=== PATIENT | female | born 1995 | race African-American/Black ===

== ENCOUNTER 2017-03-21 17:07 | Emergency (ER) | payer OTHER, SELFPAY ==
[2017-03-21] MEDS ORDERED: IBUPROFEN 800 MG TAB PO (20:30)
[2017-03-21] MEDS: ONDANSETRON 4 MG ORAL DISINTEGRATING TAB (S0181) PO (21:10)
== END 2017-03-21 21:12 | disposition home or self-care (01) ==
LOC: M ED 17:07
DX: R11.2 Nausea with vomiting, unspecified (principal); H92.02 Otalgia, left ear; J45.909 Unspecified asthma, uncomplicated; F31.9 Bipolar disorder, unspecified; Z88.0 Allergy status to penicillin; Z88.8 Allergy status to other drugs, medicaments and biological substances; F17.210 Nicotine dependence, cigarettes, uncomplicated
CPT/HCPCS: 81025

== ENCOUNTER 2017-05-10 20:31 | Emergency (ER) | payer OTHER ==
[2017-05-10] MEDS: GI COCKTAIL 50ML BTL(HYOSCYAMINE/MAALOX/LIDOCAINE VISCOUS)(1:3:1) PO (22:00)
[2017-05-10 22:01] LABS: AMORPHOUS SEDIMENT RFX SMALL (NEGATIVE); KETONE, URINE AUTO RFX NEGATIVE (NEGATIVE); LEUKOCYTE ESTERASE UR AUTO RFX 1+ (NEGATIVE); NITRITE, URINE AUTO RFX NEGATIVE (NEGATIVE); RBC, URINE AUTO RFX 2 /HPF (0-3); SPECIFIC GRAVITY UR AUTO RFX 1.019 (1.002-1.035); SQUAM EPITHELIAL CELL UR AURFX 19 /HPF (0-6); WBC, URINE AUTO RFX 4 /HPF (0-3)
[2017-05-10 22:38] LABS: BASO % 0.5 % (0.0-1.0); EOS # 0.2 10^3/uL (0.0-0.50); EOS % 2.8 % (0.0-3.0); HEMATOCRIT 44.5 % (36.0-47.0); HEMOGLOBIN 14.3 g/dl (12.0-16.0); IMMATURE GRANULOCYTE % 0.2 % (0-3.0); LYMPH # 2.1 10^3/uL (1.5-6.5); LYMPH % 34.3 % (24.0-44.0); MEAN CORPUSCULAR HEMOGLOBIN 25.6 pg (27.0-33.0); MEAN CORPUSCULAR HGB CONC 32.1 g/dl (32.0-36.5); MEAN CORPUSCULAR VOLUME 79.7 fl (80.0-96.0); MONO # 0.4 10^3/uL (0.0-0.8); MONO % 7.1 % (0.0-5.0); NEUTROPHILS # 3.4 10^3/uL (1.8-7.7); NEUTROPHILS % 55.1 % (36.0-66.0); PLATELET COUNT, AUTOMATED 359 10^3/uL (150-450); RED BLOOD COUNT 5.58 10^6/uL (4.00-5.40); RED CELL DISTRIBUTION WIDTH 13.5 % (11.5-14.5); WHITE BLOOD COUNT 6.2 10^3/uL (4.0-10.0)
[2017-05-10 22:59] LABS: ALBUMIN 3.5 GM/DL (3.2-5.2); ALBUMIN/GLOBULIN RATIO 0.85 (1.00-1.93); ALKALINE PHOSPHATASE 67 U/L (45-117); ALT/SGPT 26 U/L (12-78); AMYLASE 48 U/L (25-115); ANION GAP 8 MEQ/L (8-16); AST/SGOT 25 U/L (7-37); BILIRUBIN,DIRECT < 0.1 MG/DL (0.0-0.2); BILIRUBIN,TOTAL 0.3 MG/DL (0.2-1.0); BLOOD UREA NITROGEN 10 MG/DL (7-18); CALCIUM LEVEL 9.1 MG/DL (8.5-10.1); CARBON DIOXIDE LEVEL 27 MEQ/L (21-32); CHLORIDE LEVEL 107 MEQ/L (98-107); CREATININE FOR GFR 0.59 MG/DL (0.55-1.30); GLOMERULAR FILTRATION RATE > 60.0 (>60); GLUCOSE, FASTING 90 MG/DL (70-100); LIPASE 117 U/L (73-393); SODIUM LEVEL 142 MEQ/L (136-145); TOTAL PROTEIN 7.6 GM/DL (6.4-8.2)
== END 2017-05-10 23:23 | disposition home or self-care (01) ==
LOC: M ED 20:31
DX: R10.9 Unspecified abdominal pain (principal); J45.909 Unspecified asthma, uncomplicated; Z79.899 Other long term (current) drug therapy; Z88.0 Allergy status to penicillin; Z88.8 Allergy status to other drugs, medicaments and biological substances; F17.210 Nicotine dependence, cigarettes, uncomplicated
CPT/HCPCS: 74021

== ENCOUNTER 2017-08-29 14:49 | Emergency (ER) | payer OTHER | END 2017-08-29 17:09 | disposition home or self-care (01) | LOC: M ED 14:49 | DX: M25.562 Pain in left knee (principal); X50.1XXA Overexertion from prolonged static or awkward postures, initial encounter; Y92.89 Other specified places as the place of occurrence of the external cause; F31.9 Bipolar disorder, unspecified; F41.9 Anxiety disorder, unspecified; J45.909 Unspecified asthma, uncomplicated; F17.200 Nicotine dependence, unspecified, uncomplicated; Z88.0 Allergy status to penicillin; Z88.6 Allergy status to analgesic agent; Z88.8 Allergy status to other drugs, medicaments and biological substances; Z79.899 Other long term (current) drug therapy | CPT/HCPCS: 73564 ==

== ENCOUNTER 2017-12-09 18:54 | Emergency (ER) | payer OTHER ==
[2017-12-09 19:43] LABS: BASO % 0.4 % (0.0-1.0); EOS # 0.2 10^3/uL (0.0-0.50); EOS % 2.4 % (0.0-3.0); HEMATOCRIT 45.2 % (36.0-47.0); HEMOGLOBIN 14.4 g/dl (12.0-15.5); IMMATURE GRANULOCYTE % 0.3 % (0-3.0); LYMPH # 2.6 10^3/uL (1.5-6.5); LYMPH % 36.8 % (24.0-44.0); MEAN CORPUSCULAR HEMOGLOBIN 25.9 pg (27.0-33.0); MEAN CORPUSCULAR HGB CONC 31.9 g/dl (32.0-36.5); MEAN CORPUSCULAR VOLUME 81.4 fl (80.0-96.0); MONO # 0.6 10^3/uL (0.0-0.8); MONO % 8.7 % (0.0-5.0); NEUTROPHILS # 3.6 10^3/uL (1.8-7.7); NEUTROPHILS % 51.4 % (36.0-66.0); PLATELET COUNT, AUTOMATED 329 10^3/uL (150-450); RED BLOOD COUNT 5.55 10^6/uL (4.00-5.40); RED CELL DISTRIBUTION WIDTH 13.3 % (11.5-14.5); VENOUS BASE EXCESS 1.2 (-2.0-2.0); VENOUS HCO3 28.7 MEQ/L (23.0-27.0); VENOUS O2 SATURATION 72.4 % (60.0-80.0); VENOUS PARTIAL PRESSURE CO2 57.3 mmHg (38.0-50.0); VENOUS PARTIAL PRESSURE O2 38.4 mmHg (30.0-50.0); VENOUS PH 7.318 UNITS (7.330-7.430); VENOUS STANDARD HCO3 24.8 MEQ/L; VENOUS TOTAL CO2 30.5 MEQ/L (24.0-28.0)
[2017-12-09 19:47] LABS: CONTROL LINE HCG INT CTR LINE PRESENT; HCG, SERUM QUALITATIVE NEGATIVE (NEGATIVE)
[2017-12-09] MEDS: NS 1,000 ML IV (19:55)
[2017-12-09 20:15] LABS: ALBUMIN 3.4 GM/DL (3.2-5.2); ALBUMIN/GLOBULIN RATIO 0.87 (1.00-1.93); ALKALINE PHOSPHATASE 62 U/L (45-117); ALT/SGPT 23 U/L (12-78); ANION GAP 8 MEQ/L (8-16); AST/SGOT 15 U/L (7-37); BILIRUBIN,DIRECT < 0.1 MG/DL (0.0-0.2); BILIRUBIN,TOTAL 0.1 MG/DL (0.2-1.0); BLOOD UREA NITROGEN 12 MG/DL (7-18); CALCIUM LEVEL 9.2 MG/DL (8.5-10.1); CARBON DIOXIDE LEVEL 28 MEQ/L (21-32); CHLORIDE LEVEL 110 MEQ/L (98-107); ETHYL ALCOHOL (ETHANOL) < 0.003 % (0.000-0.010); GLOMERULAR FILTRATION RATE > 60.0 (>60); GLUCOSE, FASTING 69 MG/DL (70-100); LIPASE 165 U/L (73-393); POTASSIUM SERUM 3.9 MEQ/L (3.5-5.1); SODIUM LEVEL 146 MEQ/L (136-145); TOTAL PROTEIN 7.3 GM/DL (6.4-8.2)
[2017-12-09 20:18] LABS: ESTIMATED AVERAGE GLUCOSE 103 MG/DL (60-110); HEMOGLOBIN A1c 5.2 %
[2017-12-09] MEDS: IBUPROFEN 600 MG TAB PO (20:30)
[2017-12-09 20:58] LABS: KETONE, URINE AUTO RFX NEGATIVE (NEGATIVE); LEUKOCYTE ESTERASE UR AUTO RFX NEGATIVE (NEGATIVE); MUCUS, URINE RFX SMALL (NEGATIVE); NITRITE, URINE AUTO RFX NEGATIVE (NEGATIVE); RBC, URINE AUTO RFX 1 /HPF (0-3); SPECIFIC GRAVITY UR AUTO RFX 1.025 (1.002-1.035); SQUAM EPITHELIAL CELL UR AURFX 3 /HPF (0-6); WBC, URINE AUTO RFX 1 /HPF (0-3)
[2017-12-09 21:14] LABS: AMPHETAMINES LEVEL URINE NEGATIVE (NEGATIVE); BARBITURATES URINE NEGATIVE (NEGATIVE); BENZODIAZEPINES URINE NEGATIVE (NEGATIVE); CANNABINOIDS URINE POSITIVE (NEGATIVE); COCAINE METABOLITE URINE NEGATIVE (NEGATIVE); METHADONE URINE NEGATIVE (NEGATIVE); OPIATES URINE NEGATIVE (NEGATIVE); PHENCYCLIDINE URINE NEGATIVE (NEGATIVE)
[2017-12-16 09:41] LABS: BEDSIDE GLUCOSE 81 MG/DL (70-105)
== END 2017-12-09 21:53 | disposition home or self-care (01) ==
LOC: M ED 18:54
DX: R53.81 Other malaise (principal); R53.83 Other fatigue; R11.0 Nausea; Z88.0 Allergy status to penicillin; Z88.6 Allergy status to analgesic agent; Z88.8 Allergy status to other drugs, medicaments and biological substances; Z79.899 Other long term (current) drug therapy
CPT/HCPCS: 80320

== ENCOUNTER 2018-06-01 17:36 | Emergency (ER) | payer OTHER, SELFPAY ==
[~2018-06-01] VITALS: Ht 160 cm; Wt 114.4 kg
[~2018-06-01 17:36] MED LIST: ALBU17IN INH; ARNU1INH INH; MONT10TA2 PO; PRIL20CA9 PO; SERT50TA PO; SING10TA32 PO; TRAZO50TA PO; VENL75CA47 PO; XANA0.25 PO; ZITHTAB PO; ZOFR4TAB14 PO
[2018-06-01 17:38] VITALS: BP 133/61
== END 2018-06-01 20:15 | disposition left against medical advice (07) ==
LOC: M ED 17:36
DX: Z53.21 Procedure and treatment not carried out due to patient leaving prior to being seen by health care provider (principal)

== ENCOUNTER 2018-08-31 19:14 | Emergency (ER) | payer OTHER, SELFPAY ==
[~2018-08-31] VITALS: Ht 162.6 cm; Wt 109.1 kg
[~2018-08-31 19:14] MED LIST changes: +SERT-141 PO; -SERT50TA PO; +TRAZ1TAB10 PO; -TRAZO50TA PO
[2018-08-31 20:14] LABS: BASO % 0.4 % (0.0-1.0); EOS # 0.1 10^3/uL (0.0-0.50); EOS % 1.1 % (0.0-3.0); HEMOGLOBIN 13.7 g/dl (12.0-15.5); LYMPH # 2.4 10^3/uL (1.5-6.5); LYMPH % 29.5 % (24.0-44.0); MEAN CORPUSCULAR HEMOGLOBIN 25.8 pg (27.0-33.0); MEAN CORPUSCULAR HGB CONC 31.9 g/dl (32.0-36.5); MEAN CORPUSCULAR VOLUME 80.8 fl (80.0-96.0); MONO % 12.1 % (0.0-5.0); NEUTROPHILS # 4.6 10^3/uL (1.8-7.7); NEUTROPHILS % 56.8 % (36.0-66.0); PLATELET COUNT, AUTOMATED 331 10^3/uL (150-450); RED BLOOD COUNT 5.32 10^6/uL (4.00-5.40); WHITE BLOOD COUNT 8.2 10^3/uL (4.0-10.0)
[2018-08-31 20:16] LABS: HCG, SERUM QUALITATIVE NEGATIVE (NEGATIVE)
[2018-08-31 20:20] LABS: ALBUMIN 3.5 GM/DL (3.2-5.2); ALT/SGPT 31 U/L (12-78); BILIRUBIN,DIRECT 0.2 MG/DL (0.0-0.2); BILIRUBIN,TOTAL 0.4 MG/DL (0.2-1.0); BLOOD UREA NITROGEN 10 MG/DL (7-18); CALCIUM LEVEL 8.8 MG/DL (8.5-10.1); CARBON DIOXIDE LEVEL 25 MEQ/L (21-32); CHLORIDE LEVEL 109 MEQ/L (98-107); CK-MB VALUE MASS 2.6 NG/ML (<3.6); CPK CREATINE PHOSPHOKINASE 385 U/L (26-192); CREATININE FOR GFR 0.65 MG/DL (0.55-1.30); ETHYL ALCOHOL (ETHANOL) < 0.003 % (0.000-0.010); GLOMERULAR FILTRATION RATE > 60.0 (>60); GLUCOSE, FASTING 74 MG/DL (70-100); LIPASE 393 U/L (73-393); MB/CK RELATIVE INDEX 0.68 (< OR =4); POTASSIUM SERUM 4.2 MEQ/L (3.5-5.1); SODIUM LEVEL 141 MEQ/L (136-145); TOTAL PROTEIN 7.5 GM/DL (6.4-8.2); TROPONIN I < 0.02 NG/ML (< 0.10)
[2018-08-31 20:54] VITALS: BP 132/86
--- NOTE | 2018-09-02 13:07 | ECGEPIP ---
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
== END 2018-08-31 20:54 | disposition home or self-care (01) ==
LOC: EDBD 19:14 → M ED 19:14
DX: R68.89 Other general symptoms and signs (principal); R00.1 Bradycardia, unspecified; J45.909 Unspecified asthma, uncomplicated; F32.9 Major depressive disorder, single episode, unspecified; Z72.0 Tobacco use; F12.10 Cannabis abuse, uncomplicated; Z88.0 Allergy status to penicillin; Z88.6 Allergy status to analgesic agent; Z88.8 Allergy status to other drugs, medicaments and biological substances
CPT/HCPCS: 80048; 80076; 82550; 82553; 83690; 84443; 84703; 85025; 93005; 99284; G0480

== ENCOUNTER 2018-12-27 09:54 | Emergency (ER) | payer OTHER ==
[~2018-12-27] VITALS: Ht 160 cm; Wt 108.1 kg
[2018-12-27 09:54] VITALS: BP 140/65
--- NOTE | 2018-12-27 11:07 | REP ---
LEFT KNEE, FIVE VIEWS: There is no evidence of an acute fracture, dislocation or intrinsic bone disease. IMPRESSION: No fracture or dislocation. Electronically Signed by Roger Ariza MD 12/28/2018 04:06 P
--- NOTE | 2018-12-27 11:08 | REP ---
LUMBOSACRAL SPINE: Five views of the lumbosacral spine are performed. There is no compression fracture or malalignment. There is normal lumbar lordosis. There is no spondylolysis or spondylolisthesis. Disc spaces are well preserved. Posterior elements are intact. There are hypoplastic 12th ribs. IMPRESSION: No fracture or dislocation. Electronically Signed by Roger Ariza MD 12/28/2018 04:06 P
== END 2018-12-27 11:26 | disposition home or self-care (01) ==
LOC: M ED 09:54
DX: S80.02XA Contusion of left knee, initial encounter (principal); S33.5XXA Sprain of ligaments of lumbar spine, initial encounter; V09.9XXA Pedestrian injured in unspecified transport accident, initial encounter; Y99.8 Other external cause status; Y92.9 Unspecified place or not applicable; Z88.0 Allergy status to penicillin; Z88.6 Allergy status to analgesic agent; J45.909 Unspecified asthma, uncomplicated; R73.03 Prediabetes; F41.9 Anxiety disorder, unspecified; F31.9 Bipolar disorder, unspecified; F17.200 Nicotine dependence, unspecified, uncomplicated; W22.10XA Striking against or struck by unspecified automobile airbag, initial encounter

== ENCOUNTER 2019-02-07 16:36 | Emergency (ER) | payer OTHER ==
[~2019-02-07] VITALS: Ht 160 cm; Wt 107.7 kg
[2019-02-07 16:38] VITALS: BP 146/80
== END 2019-02-07 20:28 | disposition left against medical advice (07) ==
LOC: M ED 16:36
DX: Z53.21 Procedure and treatment not carried out due to patient leaving prior to being seen by health care provider (principal)

== ENCOUNTER 2019-03-14 10:44 | Emergency (ER) | payer OTHER ==
[2019-03-14 10:56] VITALS: BP 127/85
[2019-03-14] MEDS ORDERED: ALPRAZolam 0.5 MG TAB PO ONE (11:15)
== END 2019-03-14 11:36 | disposition home or self-care (01) ==
LOC: M ED 10:44
DX: F41.0 Panic disorder [episodic paroxysmal anxiety] (principal); R55 Syncope and collapse; I10 Essential (primary) hypertension; J45.909 Unspecified asthma, uncomplicated; F17.200 Nicotine dependence, unspecified, uncomplicated; Z88.0 Allergy status to penicillin; Z88.6 Allergy status to analgesic agent; Z88.8 Allergy status to other drugs, medicaments and biological substances

== ENCOUNTER 2019-04-02 19:26 | Emergency (ER) | payer OTHER ==
[~2019-04-02] VITALS: Ht 160 cm; Wt 107.3 kg
[2019-04-02 20:08] LABS: BASO % 0.4 % (0.0-1.0); EOS # 0.1 10^3/uL (0.0-0.5); EOS % 1.8 % (0.0-3.0); HEMOGLOBIN 13.4 g/dl (12.0-15.5); LYMPH # 1.6 10^3/uL (1.5-5.0); LYMPH % 35.1 % (24.0-44.0); MEAN CORPUSCULAR HEMOGLOBIN 25.9 pg (27.0-33.0); MEAN CORPUSCULAR HGB CONC 31.2 g/dl (32.0-36.5); MONO # 0.8 10^3/uL (0.0-0.8); MONO % 17.2 % (0.0-5.0); NEUTROPHILS % 45.5 % (36.0-66.0); PLATELET COUNT, AUTOMATED 264 10^3/uL (150-450); RED BLOOD COUNT 5.18 10^6/uL (4.00-5.40); WHITE BLOOD COUNT 4.5 10^3/uL (4.0-10.0)
[2019-04-02] MEDS ORDERED: ONDANSETRON 4MG/2ML VIAL (J2405) IV ONE (20:15)
[2019-04-02] MEDS ORDERED: KETOROLAC 30 MG/ML VIAL (J1885) IV ONE (20:15)
[2019-04-02 20:36] LABS: ALBUMIN 3.6 GM/DL (3.2-5.2); ALT/SGPT 40 U/L (12-78); BILIRUBIN,DIRECT 0.1 MG/DL (0.0-0.2); BILIRUBIN,TOTAL 0.5 MG/DL (0.2-1.0); BLOOD UREA NITROGEN 10 MG/DL (7-18); CALCIUM LEVEL 8.7 MG/DL (8.5-10.1); CARBON DIOXIDE LEVEL 24 MEQ/L (21-32); CHLORIDE LEVEL 109 MEQ/L (98-107); CREATININE FOR GFR 0.66 MG/DL (0.55-1.30); GLOMERULAR FILTRATION RATE > 60.0 (>60); GLUCOSE, FASTING 90 MG/DL (70-100); LIPASE 118 U/L (73-393); POTASSIUM SERUM 4.1 MEQ/L (3.5-5.1); SODIUM LEVEL 139 MEQ/L (136-145); TOTAL PROTEIN 7.3 GM/DL (6.4-8.2)
--- NOTE | 2019-04-02 22:08 | REPVR ---
PROCEDURE INFORMATION: Exam: US Pelvis, Transvaginal Exam date and time: 04/02/2019 9:50 PM Age: 23 years old Clinical indication: Pelvic pain; Additional info: Lower abd pain/irregular menses TECHNIQUE: Imaging protocol: Real-time transvaginal pelvic ultrasound with image documentation. Transvaginal imaging was used for better evaluation of the endometrium and adnexa. COMPARISON: CT ABD PELVIS WITH CONTRAST 11/29/2012 12:50 PM FINDINGS: Uterus/cervix: Uterus measures 5.6 x 2.7 x 3.8 cm. Endometrial echo complex measures 6 mm. Right adnexa: Right ovary measures 3 x 1.7 x 2.5 cm. Volume 6.7 cc. Normal flow. Left adnexa: Left ovary measures 2.8 x 2.1 x 3.2 cm. Volume 9.8 cc. Normal flow. Bladder: Bladder appears unremarkable. Free fluid: Trace free fluid in the cul-de-sac likely physiologic. IMPRESSION: Unremarkable examination. Electronically signed by: Celso Moreno On 04/02/2019 22:08:08 PM
[2019-04-02] MEDS ORDERED: ISOVUE-370 76% 100ML VIAL (Q9967) As Ordered ONE (22:37)
--- NOTE | 2019-04-02 23:29 | REPVR ---
PROCEDURE INFORMATION: Exam: CT Abdomen And Pelvis With Contrast Exam date and time: 04/02/2019 10:57 PM Age: 23 years old Clinical indication: Abdominal pain; Localized; Lower; Additional info: Lower abd pain TECHNIQUE: Imaging protocol: Computed tomography of the abdomen and pelvis with intravenous contrast. Radiation optimization: All CT scans at this facility use at least one of these dose optimization techniques: automated exposure control; mA and/or kV adjustment per patient size (includes targeted exams where dose is matched to clinical indication); or iterative reconstruction. Contrast material: ISOVUE 370; Contrast volume: 100 ml; Contrast route: IV; COMPARISON: CT ABD PELVIS WITH CONTRAST 11/29/2012 12:50 PM FINDINGS: Lungs: Clear lung bases. Heart: The heart is top-normal in size. Liver: Normal liver. Gallbladder and bile ducts: Partially contracted gallbladder. Pancreas: Normal pancreas. Spleen: Normal spleen. Adrenals: Normal adrenal glands. Kidneys and ureters: Normal enhancement of the kidneys. There is no evidence of hydronephrosis. Stomach and bowel: Unremarkable. No obstruction. No mucosal thickening. Appendix: Normal appendix. Intraperitoneal space: There is no evidence of pneumoperitoneum. Vasculature: There is opacification of the aorta which appears normal in size. There is opacification of the SMV and SMA. Lymph nodes: Unremarkable. No enlarged lymph nodes. Bladder: Normal urinary bladder. Reproductive: Normal uterus. There is a 2 cm cyst right ovary. Bones/joints: There is no evidence of bony abnormality. Soft tissues: Unremarkable. IMPRESSION: Normal appearing CT scan of the abdomen and pelvis. Electronically signed by: Jesus Madera On 04/02/2019 23:28:22 PM
[2019-04-03 00:06] VITALS: BP 111/72
== END 2019-04-03 00:11 | disposition home or self-care (01) ==
LOC: M ED 19:26
DX: N92.6 Irregular menstruation, unspecified (principal); R10.9 Unspecified abdominal pain; J45.909 Unspecified asthma, uncomplicated; E11.9 Type 2 diabetes mellitus without complications; F41.9 Anxiety disorder, unspecified; F31.9 Bipolar disorder, unspecified; F17.210 Nicotine dependence, cigarettes, uncomplicated; Z84.2 Family history of other diseases of the genitourinary system; Z83.79 Family history of other diseases of the digestive system; Z88.0 Allergy status to penicillin; Z88.8 Allergy status to other drugs, medicaments and biological substances
CPT/HCPCS: J2405; Q9967; J1885; 76856; 76830; 93976; 74177; 83690; 80076; 84702; 80048; 85025; 81001; 87086; 96374; 96375; 99284

== ENCOUNTER 2019-05-22 07:42 | Day surgery (SDC) | payer OTHER ==
[~2019-05-22] VITALS: Ht 160 cm; Wt 106.6 kg
[~2019-05-22 07:42] MED LIST changes: +CIPRODEX OTIC SUSP 7.5ML As Ordered ONE; +LIDOCAINE 1% MDV 20ML VIAL SQ PRN; +LR 1,000 ML IV ONE; -MONT10TA2 PO; +MONT10TA4 PO
[2019-05-22] MEDS ORDERED: LIDOCAINE 2% INJ 100 MG/5 ML SDV (FOR ANES.) As Ordered ONE (09:09)
[2019-05-22] MEDS ORDERED: MIDAZOLAM INJ 2 MG/2 ML VIAL (J2250) As Ordered ONE (09:09)
[2019-05-22] MEDS ORDERED: propofoL 200 MG/20 ML VIAL As Ordered ONE (09:09)
[2019-05-22] MEDS ORDERED: fentaNYL 100 MCG/2 ML INJECTION (J3010) As Ordered ONE (09:10)
[2019-05-22] MEDS ORDERED: dexameTHASONE 4 MG/ML 1ML VIAL (J1100) As Ordered ONE (09:12)
[2019-05-22] MEDS ORDERED: ONDANSETRON 4MG/2ML VIAL (J2405) As Ordered ONE (09:12)
[2019-05-22] MEDS ORDERED: ONDANSETRON 4MG/2ML VIAL (J2405) IV PRN (10:15)
[2019-05-22] MEDS ORDERED: oxyCODONE 5MG TAB PO PRN (10:15)
[2019-05-22 10:30] VITALS: BP 143/75
[2019-05-22] MEDS ORDERED: IBUPROFEN 800 MG TAB PO PRN (11:15)
--- NOTE | 2019-05-23 23:08 | RO ---
DATE OF PROCEDURE: 05/22/2019 PREOPERATIVE DIAGNOSIS: Chronic otitis media. POSTOPERATIVE DIAGNOSIS: Chronic otitis media. PROCEDURE: Bilateral myringotomy tubes. SURGEON: Guy Hong MD ORIENTAL RUG REPAIRER: ANESTHESIA: INDICATIONS: A 23-year-old who presents with a 3-4 month history of decreased hearing consistent with flat tympanograms and a previous diagnosis of middle ear fluid. Attempt to place the tube in the office was unsuccessful. DESCRIPTION OF PROCEDURE: Satisfactory mask anesthesia administered, right ear examined and cleaned under the microscope. Sort of a diffuse modest tympanosclerosis noted throughout the whole drum, some new vascularization noted. Anterior inferior myringotomy made. Scant serous fluid suctioned. Beveled Bobbin tube inserted, Ciprodex drops instilled. The left ear was examined and cleaned under the microscope, similar findings. Anterior inferior myringotomy made. Beveled Bobbin tube inserted, Ciprodex drops instilled. She tolerated the procedure well, was sent to recovery in satisfactory condition. She will be seen back in the office in 1 week.
== END 2019-05-22 10:52 | disposition home or self-care (01) ==
LOC: M SDC 07:42
PROVIDERS: ATTEND Specialist
DX: H65.23 Chronic serous otitis media, bilateral (principal); K21.9 Gastro-esophageal reflux disease without esophagitis; I10 Essential (primary) hypertension; F41.9 Anxiety disorder, unspecified; F32.9 Major depressive disorder, single episode, unspecified; F12.10 Cannabis abuse, uncomplicated; Z88.0 Allergy status to penicillin; Z88.8 Allergy status to other drugs, medicaments and biological substances
CPT/HCPCS: 69436; 81025; J1100; J2250; J2405; J3010

== ENCOUNTER 2019-08-24 02:07 | Emergency (ER) | payer OTHER ==
[~2019-08-24] VITALS: Ht 160 cm; Wt 111.5 kg
[~2019-08-24 02:07] MED LIST changes: -CIPRODEX OTIC SUSP 7.5ML As Ordered ONE; -LIDOCAINE 1% MDV 20ML VIAL SQ PRN; -LR 1,000 ML IV ONE
[2019-08-24] MEDS ORDERED: LIDOCAINE W/EPINEPHRINE 1% 20ML VIAL SC ONE (02:45)
[2019-08-24 02:57] LABS: HEMATOCRIT 42.2 % (36.0-47.0); HEMOGLOBIN 13.7 g/dl (12.0-15.5); MEAN CORPUSCULAR HGB CONC 32.5 g/dl (32.0-36.5); MEAN CORPUSCULAR VOLUME 80.2 fl (80.0-96.0); PLATELET COUNT, AUTOMATED 301 10^3/uL (150-450); RED BLOOD COUNT 5.26 10^6/uL (4.00-5.40); WHITE BLOOD COUNT 4.6 10^3/uL (4.0-10.0)
[2019-08-24] MEDS ORDERED: LORazepam 2 MG/ML VIAL IM STA (03:13)
[2019-08-24 03:25] LABS: HCG, SERUM QUALITATIVE NEGATIVE (NEGATIVE)
[2019-08-24] MEDS ORDERED: ONDANSETRON 4 MG ORAL DISINTEGRATING TAB As Ordered ONE (03:27)
[2019-08-24] MEDS ORDERED: ONDANSETRON 4 MG ORAL DISINTEGRATING TAB PO ONE (03:30)
[2019-08-24] MEDS ORDERED: LORazepam 2 MG/ML VIAL IM ONE (03:30)
[2019-08-24 03:39] LABS: ALBUMIN 3.5 GM/DL (3.2-5.2); ALT/SGPT 25 U/L (12-78); BILIRUBIN,DIRECT 0.2 MG/DL (0.0-0.2); BILIRUBIN,TOTAL 0.7 MG/DL (0.2-1.0); BLOOD UREA NITROGEN 6 MG/DL (7-18); CALCIUM LEVEL 8.4 MG/DL (8.5-10.1); CARBON DIOXIDE LEVEL 25 MEQ/L (21-32); CHLORIDE LEVEL 109 MEQ/L (98-107); CREATININE FOR GFR 0.57 MG/DL (0.55-1.30); ETHYL ALCOHOL (ETHANOL) 0.126 % (0.000-0.010); GLOMERULAR FILTRATION RATE > 60.0 (>60); GLUCOSE, FASTING 81 MG/DL (70-100); POTASSIUM SERUM 3.6 MEQ/L (3.5-5.1); SALICYLATE LEVEL 2.5 MG/DL (5.0-30.0); SODIUM LEVEL 143 MEQ/L (136-145); TOTAL PROTEIN 7.4 GM/DL (6.4-8.2)
[2019-08-24 03:40] LABS: ACETAMINOPHEN LEVEL < 2.0 UG/ML (10.0-30.0)
--- NOTE | 2019-08-24 05:59 | REPVR ---
PROCEDURE INFORMATION: Exam: XR Left Wrist Exam date and time: 08/24/2019 5:47 AM Age: 24 years old Clinical indication: Swelling; Wrist; Left; Additional info: Pain/fall TECHNIQUE: Imaging protocol: XR Left wrist. Views: 3 or more views. COMPARISON: CR Hand, complete 03/02/2015 6:12 PM FINDINGS: Bones/joints: Normal. Soft tissues: Normal. IMPRESSION: No acute findings. Electronically signed by: Sonny Medrano On 08/24/2019 05:59:28 AM
[2019-08-24 08:19] VITALS: BP 122/65
[2019-08-24 09:03] LABS: AMPHETAMINES LEVEL URINE NEGATIVE (NEGATIVE); BARBITURATES URINE NEGATIVE (NEGATIVE); BENZODIAZEPINES URINE NEGATIVE (NEGATIVE); CANNABINOIDS URINE POSITIVE (NEGATIVE); COCAINE METABOLITE URINE NEGATIVE (NEGATIVE); METHADONE URINE NEGATIVE (NEGATIVE); OPIATES URINE NEGATIVE (NEGATIVE); PHENCYCLIDINE URINE NEGATIVE (NEGATIVE)
== END 2019-08-24 10:06 | disposition home or self-care (01) ==
LOC: M ED 02:07
DX: F10.229 Alcohol dependence with intoxication, unspecified (principal); S51.812A Laceration without foreign body of left forearm, initial encounter; X78.9XXA Intentional self-harm by unspecified sharp object, initial encounter; Y92.89 Other specified places as the place of occurrence of the external cause; I10 Essential (primary) hypertension; J45.909 Unspecified asthma, uncomplicated; F31.9 Bipolar disorder, unspecified; F41.9 Anxiety disorder, unspecified; Z88.0 Allergy status to penicillin; Z88.7 Allergy status to serum and vaccine; Z88.8 Allergy status to other drugs, medicaments and biological substances; F17.210 Nicotine dependence, cigarettes, uncomplicated
CPT/HCPCS: 12001; 36415; 73110; 80048; 80076; 80307; 84443; 84703; 85027; 96372; 99285; G0480; J2060; Q0162

== ENCOUNTER 2019-11-13 09:09 | Emergency (ER) | payer OTHER ==
[~2019-11-13] VITALS: Ht 160 cm; Wt 110.0 kg
[2019-11-13] MEDS ORDERED: VIT (09:16)
[2019-11-13] MEDS ORDERED: IRON (09:16)
[2019-11-13] MEDS ORDERED: [UNRECOGNIZED DRUG - OTHER] (09:16)
[2019-11-13] MEDS ORDERED: IBUPROFEN 800 MG TAB PO ONE (10:30)
[2019-11-13 10:42] LABS: BASO % 0.4 % (0.0-1.0); EOS # 0.2 10^3/uL (0.0-0.5); EOS % 5.2 % (0.0-3.0); HEMATOCRIT 43.3 % (36.0-47.0); HEMOGLOBIN 13.8 g/dl (12.0-15.5); LYMPH # 1.8 10^3/uL (1.5-5.0); LYMPH % 41.3 % (24.0-44.0); MEAN CORPUSCULAR HEMOGLOBIN 26.6 pg (27.0-33.0); MEAN CORPUSCULAR HGB CONC 31.9 g/dl (32.0-36.5); MEAN CORPUSCULAR VOLUME 83.6 fl (80.0-96.0); MONO # 0.5 10^3/uL (0.0-0.8); MONO % 11.2 % (0.0-5.0); NEUTROPHILS # 1.9 10^3/uL (1.5-8.5); NEUTROPHILS % 41.9 % (36.0-66.0); PLATELET COUNT, AUTOMATED 293 10^3/uL (150-450); RED BLOOD COUNT 5.18 10^6/uL (4.00-5.40); WHITE BLOOD COUNT 4.5 10^3/uL (4.0-10.0)
[2019-11-13 11:14] LABS: ALBUMIN 3.2 GM/DL (3.2-5.2); ALT/SGPT 20 U/L (12-78); BILIRUBIN,DIRECT 0.1 MG/DL (0.0-0.2); BILIRUBIN,TOTAL 0.3 MG/DL (0.2-1.0); BLOOD UREA NITROGEN 7 MG/DL (7-18); CALCIUM LEVEL 9.2 MG/DL (8.5-10.1); CARBON DIOXIDE LEVEL 30 MEQ/L (21-32); CHLORIDE LEVEL 111 MEQ/L (98-107); CREATININE FOR GFR 0.72 MG/DL (0.55-1.30); GLOMERULAR FILTRATION RATE > 60.0 (>60); GLUCOSE, FASTING 94 MG/DL (70-100); LIPASE 79 U/L (73-393); POTASSIUM SERUM 4.2 MEQ/L (3.5-5.1); SODIUM LEVEL 143 MEQ/L (136-145); TOTAL PROTEIN 6.8 GM/DL (6.4-8.2)
--- NOTE | 2019-11-13 11:53 | REPVR ---
PROCEDURE INFORMATION: Exam: XR Abdomen, 1 View Exam date and time: 11/13/2019 11:37 AM Age: 24 years old Clinical indication: Abdominal pain; Epigastric; Additional info: Lower abd pain TECHNIQUE: Imaging protocol: XR of the abdomen. Views: Frontal supine view of the abdomen. 1 View. COMPARISON: CT ABD/PEL W/IV CONTRAST ONLY 04/02/2019 10:55 PM FINDINGS: Gastrointestinal tract: Unremarkable. No bowel dilation. Vasculature: Right pelvic phlebolith. Bones/joints: No acute abnormality identified. IMPRESSION: No acute abdominal or pelvic abnormality identified. Electronically signed by: Nikolas Anand On 11/13/2019 11:54:00 AM
[2019-11-13] MEDS ORDERED: COLA100C5 PO (13:22)
[2019-11-13 13:54] VITALS: BP 178/84
== END 2019-11-13 13:58 | disposition home or self-care (01) ==
LOC: M ED 09:09
DX: K64.9 Unspecified hemorrhoids (principal); R19.5 Other fecal abnormalities; I10 Essential (primary) hypertension; K59.00 Constipation, unspecified; K21.9 Gastro-esophageal reflux disease without esophagitis; F17.200 Nicotine dependence, unspecified, uncomplicated; E66.9 Obesity, unspecified; Z79.899 Other long term (current) drug therapy; Z88.0 Allergy status to penicillin; Z88.7 Allergy status to serum and vaccine; Z88.6 Allergy status to analgesic agent; Z88.8 Allergy status to other drugs, medicaments and biological substances

== ENCOUNTER 2020-01-30 11:39 | Emergency (ER) | payer OTHER ==
[~2020-01-30] VITALS: Ht 160 cm; Wt 109.3 kg
[~2020-01-30 11:39] MED LIST changes: +COLA100C5 PO; +IRON; +VIT; +[UNRECOGNIZED DRUG - OTHER]
--- NOTE | 2020-01-30 12:31 | REP ---
INDICATION: trauma. COMPARISON: None. TECHNIQUE: Four views. FINDINGS: Four views of the right elbow demonstrate normal bones, joints, and soft tissues. No fracture or subluxation is seen. No opaque foreign body noted. No evidence of joint effusion. IMPRESSION: Negative right elbow series. <Electronically signed by Nando Sexton > 01/30/20 [id number]
[2020-01-30 12:53] VITALS: BP 115/63
== END 2020-01-30 12:54 | disposition home or self-care (01) ==
LOC: M ED 11:39
DX: S50.01XA Contusion of right elbow, initial encounter (principal); S50.311A Abrasion of right elbow, initial encounter; X58.XXXA Exposure to other specified factors, initial encounter; Y92.018 Other place in single-family (private) house as the place of occurrence of the external cause; I10 Essential (primary) hypertension; F33.9 Major depressive disorder, recurrent, unspecified; F41.9 Anxiety disorder, unspecified; Z88.0 Allergy status to penicillin; Z88.7 Allergy status to serum and vaccine; Z88.8 Allergy status to other drugs, medicaments and biological substances; F17.210 Nicotine dependence, cigarettes, uncomplicated

== ENCOUNTER 2020-03-22 13:12 | Emergency (ER) | payer OTHER ==
[~2020-03-22] VITALS: Ht 160 cm; Wt 107.1 kg
[~2020-03-22 13:12] MED LIST changes: -MONT10TA4 PO; +MONT5TAB2 PO
--- NOTE | 2020-03-22 14:12 | REP ---
INDICATION: pain after falling on ice COMPARISON: None. TECHNIQUE: AP, lateral, bilateral oblique views. FINDINGS: No acute fracture or dislocation. Skeletal structures and joint spaces are intact and normal. Ankle mortise appears stable. No subcutaneous emphysema or radiodense foreign body. IMPRESSION: No acute fracture or dislocation. <Electronically signed by Olivier Glaser > 03/22/20 [id number]
[2020-03-22 14:27] VITALS: BP 129/70
== END 2020-03-22 14:45 | disposition home or self-care (01) ==
LOC: M ED 13:12
DX: S93.402A Sprain of unspecified ligament of left ankle, initial encounter (principal); X50.1XXA Overexertion from prolonged static or awkward postures, initial encounter; Y92.099 Unspecified place in other non-institutional residence as the place of occurrence of the external cause; Y93.9 Activity, unspecified; Y99.9 Unspecified external cause status; I10 Essential (primary) hypertension; J45.909 Unspecified asthma, uncomplicated; F31.9 Bipolar disorder, unspecified; F17.200 Nicotine dependence, unspecified, uncomplicated; Z88.0 Allergy status to penicillin; Z88.7 Allergy status to serum and vaccine; Z88.6 Allergy status to analgesic agent

== ENCOUNTER 2020-10-30 10:02 | Emergency (ER) | payer OTHER ==
[~2020-10-30] VITALS: Ht 160 cm; Wt 109.1 kg
[~2020-10-30 10:02] MED LIST changes: +MONT10TA10 PO; -MONT5TAB2 PO
[2020-10-30 12:57] VITALS: BP 128/98
== END 2020-10-30 12:58 | disposition home or self-care (01) ==
LOC: M ED 10:02
DX: T16.9XXA Foreign body in ear, unspecified ear, initial encounter (principal); Y92.9 Unspecified place or not applicable; Y93.9 Activity, unspecified; I10 Essential (primary) hypertension; J45.909 Unspecified asthma, uncomplicated; F41.9 Anxiety disorder, unspecified; F31.89 Other bipolar disorder; F17.200 Nicotine dependence, unspecified, uncomplicated

== ENCOUNTER 2021-02-03 20:34 | Emergency (ER) | payer OTHER ==
[~2021-02-03] VITALS: Ht 160 cm; Wt 108.2 kg
--- OUTSIDE RECORDS SUMMARY | 2021-02-03 20:38 | CCD ---
Author Organization Unknown Address [address] [place] [id number] Phone [phone] Care Team Providers Care Soldering Inspector Name Role Phone Krsitine Berger Unavailable Unavailable Allergies Code Code System Name Reaction Severity Status Onset 723 RxNorm Amoxicillin Active 09/17/2014 33373 RxNorm Cefdinir Active 02/17/2019 1191 RxNorm Aspirin Active Medications Name Status Start Date Stop Date DOK 100 mg capsule TAKE ONE CAPSULE BY MOUTH TWICE DAILY Completed 0 09/11/2020 metronidazole 500 mg tablet TAKE ONE TABLET BY MOUTH TWICE DAILY FOR 7 DAYS Completed 09/11/2020 Vitamin D2 1,250 mcg (50,000 unit) capsu le take one tablet by mouth weekly Active Not oumar ilable Wellbutrin XL 150 mg 24 hr tablet, exten ded release Take 1 tablet every day by oral route. Active Not available Problems Name Status Onset Date Source Impacted Tooth Active 01/30/2014 History Vitamin D Deficiency Active 08/02/2014 History Hyperlipidemia Active 08/02/2014 History Tobacco Use and Exposure - Finding Active 04/29/2015 History Asthma Active 07/07/2016 History Vitiligo Active 07/07/2016 History Endocrine/metabolic Screening Active 07/07/2016 Hi story Procedure by Method Active 07/07/2016 History Evaluation Procedure Active 07/07/2016 History Thirst Finding Active 07/07/2016 History Emotional State Finding Active 07/07/2016 History Clinical Finding Active 07/07/2016 History Nicotine Dependence Active 07/12/2017 History Screening for Hematological Disorder Active 07/12/2017 History Screening for Immune Disorder Active 07/12/2017 Hi story Body Mass Index 30+ - Obesity Active 11/11/2017 Hi story Severe Obesity Active 11/11/2017 History Streptococcal Sore Throat Active 12/14/2017 Histor y Cannabis Abuse Active 07/20/2018 History Finding of Pattern of Menstrual Cycle Active 07/20/2018 History Chest Pain Active 09/13/2018 History Cardiovascular Measurement - Finding Active 09/13/2018 History Allergic Rhinitis Active 02/08/2019 History Disorder of Ear Active 02/08/2019 History Disorder of Ear Active 02/08/2019 History Mixed Anxiety and Depressive Disorder Active 11/11/2020 Cannabis Dependence Active 11/11/2020 Adult Health Examination Active 11/11/2020 Body Mass Index 40+ - Severely Obese Active 11/11/2020 Patient Asked to Attend Active 11/11/[address] Concept Active History Procedures Notes: [place] teeth removed Results Lab Results Date Name Specimen Result Interpretation Description Value Range Status Address 10/21/2020 Lipid Panel, Blood Blood venous Cholesterol , Total 196 mg/dL <200 mg/dL Final [facility]: [address] [facility] Blood venous HDL Cholesterol 70 mg/dL > or = 50 mg/dL Final [facility]: [address] [place] [address] Blood venous Triglycerides 126 mg/dL <150 mg/dL [facility]: [address] [place] [address] Blood venous High LDL-cholesterol 103 mg/d L (calc) <100 mg/dL (calc) Final [facility]: [address] [facility] Blood venous Chol/hdlc Ratio 2.8 calc <5.0 calc Final [facility]: [address] [facility] Blood venous Non HDL Cholesterol 126 mg/dL (calc) <130 mg/dL (calc) Final [facility]: [address] [facility] 10/21/2020 TSH + Free T4, Serum Blood venous Normal Tsh 1.52 m IU/L Final [facility]: [address] [facility] Blood venous Normal T4, Free 1.1 NG/dL 0.8-1.8 NG /dL Final [facility]: [address] [facility] 10/21/2020 Specimen Integrity Compromised Specimen Integrity Compromised Final [facility]: [address] [place] [address] 10/21/2020 CMP, Serum or Plasma Blood venous Low Glucose 47 mg/dL 65-99 mg/dL Final [facility]: [address] [facility] Blood venous Normal Urea Nitrogen (BUN) 16 mg/dL 7-25 mg/dL Final [facility]: [address] [facility] Blood venous Normal Creatinine 0.60 mg/dL 0.50-1. 10 mg/dL Final [facility]: [address] [facility] Blood venous Normal eGFR Non-afr. Filipino 1 26 mL/min/1.73m2 > or = 60 mL/min/1.73m2 Final [facility]: [address] [facility] Blood venous Normal eGFR 14 6 mL/min/1.73m2 > or = 60 mL/min/1.73m2 Final [facility]: [address] [facility] Blood venous BUN/creatinine Ratio not applicable (calc) 6-22 (calc) [facility]: [address] [facility] Blood venous Normal Sodium 136 mmol/L 135-146 mmo l/L [facility]: [address] [facility] Blood venous High Potassium 5.8 mmol/L 3.5-5.3 mmol/L [facility]: [address] [facility] Blood venous Normal Chloride 102 mmol/L 98-110 mm ol/L [facility]: [address] [facility] Blood venous Normal Carbon Dioxide 25 mmol/L 20-3 2 mmol/L [facility]: [address] [facility] Blood venous Normal Calcium 9.2 mg/dL 8.6-10.2 mg /dL [facility]: [address] [facility] Blood venous Normal Protein, Total 7.2 g/dL 6.1-8 .1 g/dL [facility]: [address] [facility] Blood venous Normal Albumin 4.1 g/dL 3.6-5.1 g/dL [facility]: [address] [facility] Blood venous Normal Globulin 3.1 g/dL (calc) 1.9- 3.7 g/dL (calc) [facility]: [address] [facility] Blood venous Normal Albumin/globulin Ratio 1 .3 (calc) 1.0-2.5 (calc) [facility]: [address] [facility] Blood venous Normal Bilirubin, Total 0.3 mg/dL 0. 2-1.2 mg/dL [facility]: [address] [facility] Blood venous Normal Alkaline Phosphatase 58 U/L 3 1-125 U/L [facility]: [address] [facility] Blood venous Normal Ast 27 U/L 10-30 U/L Final [facility]: [address] [facility] Blood venous Normal Alt 25 U/L 6-29 U/L [facility]: [address] [facility] 10/21/2020 Urinalysis Complete, Reflex Culture [place] r tnp Final [facility]: [address] [facility] 10/21/2020 CBC W/ Auto Diff Blood venous Normal White B lood Cell Count 6.2 thousand/uL 3.8-10.8 thousand/uL Final [facility]: [address] [facility] Blood venous High Red Blood Cell Count 5.3 0 million/uL 3.80-5.10 million/uL Final [facility]: [address] [facility] Blood venous Normal Hemoglobin 13.9 g/dL 11.7-15. 5 g/dL Final [facility]: [address] [facility] Blood venous Normal Hematocrit 42.9 % 35.0-45.0 % Final [facility]: [address] [facility] Blood venous Normal Mcv 80.9 fL 80.0-100.0 fL Fi nal [facility]: [address] [facility] Blood venous Low Mch 26.2 pg 27.0-33.0 pg Fin al [facility]: [address] [facility] Blood venous Normal Mchc 32.4 g/dL 32.0-36.0 g/dL [facility]: [address] [facility] Blood venous Normal Rdw 13.1 % 11.0-15.0 % Final [facility]: [address] [facility] Blood venous Normal Platelet Count 340 thous and/uL 140-400 thousand/uL Final [facility]: [address] [facility] Blood venous Normal Mpv 10.3 fL 7.5-12.5 fL [place] l [facility]: [address] [facility] Blood venous Normal Absolute Neutrophils 334 2 cells/uL 8982-0358 cells/uL Final [facility] gh: [address] [facility] Blood venous Normal Absolute Lymphocytes 194 1 cells/uL 850-3900 cells/uL Final [facility] gh: [address] [place], [place] Blood venous Normal Absolute Monocytes 725 c ells/uL 200-950 cells/uL Final [facility]: [address] [facility] Blood venous Normal Absolute Eosinophils 161 cells/uL 15-500 cells/uL Final [facility]: [address] [facility] [place] Blood venous Normal Absolute Basophils 31 ce lls/uL 0-200 cells/uL Final [facility]: [address] [facility] Blood venous Normal Neutrophils 53.9 % 38-80 % Fi nal [facility]: [address] [facility] Blood venous Normal Lymphocytes 31.3 % 15-49 % Fi nal [facility]: [address] [facility] Blood venous Normal Monocytes 11.7 % 0-13 % Final [facility]: [address] [facility] Blood venous Normal Eosinophils 2.6 % 0-8 % Fin al [facility]: [address] [facility] Blood venous Normal Basophils 0.5 % 0-2 % Final [facility]: [address] [facility] 10/21/2020 Vitamin D, 25-Hydroxy, Total, Serum Blood venous Low Vitamin D,25-Oh,total,ia 13 NG/mL 30-100 NG/mL Final [facility]: [address] [facility] 10/21/2020 HbA1C (Hemoglobin a1C), Blood Blood venous Normal Hemoglobin a1C 5.3 % of total HGB <5.7 % of total HGB Final [facility]: [address] [facility] Past Encounters 11/07/2020 Body Mass Index 40+ - Severely Obese; Mixed Anxiety and Depressive Disorder; Adult Health Examination; Vitamin D Deficiency; Cannabis Dependence; Patient [facility]ked to Attend [facility] [address] [place] [phone], Ph. 10/21/2020 Kristine Berger [facility]: [address] [place] [address], Ph. 09/11/2020 Tobacco Dependence Caused by Cigarettes; Body Mass Index 40+ - Severely Obese; Bilateral Knee Pain; Cannabis Dependence; Obesity Kristine Berger [employer]: [address] [place] [address], Ph. Social History Tobacco Smoking Status Light Tobacco Smoker (1/4 pack per da y) Vaccine List Vaccine Type influenza, seasonal, injectable 02/07/20150.5 mL 03/30/2016 meningococcal [id number] 01/05/20130.5 mL Tdap 06/20/2014 Plan of Care Patient Instructions You have had your annual physical exam d one today. Please continue medications as prescribed. Please continue healthy diet and physical activities. Please try to limit sugars and carbohydrates in your diet. Please try to maintain adequate intake of water daily. Please continue medications as prescribe d. Please try to maintain good nutrition, adequate rest and adequate physical activities and adequate intake of water daily. We have made a referral for you today. We will contact you to set this up. Reminders Provider Appointments None recorded. Lab None recorded. Referral None recorded. Procedures None recorded. Surgeries None recorded. Imaging None recorded. Vitals 11/07/2020 02:20PM ANNUAL EXAM Height Weight BMI Blood Pressure 63 in 240 lbs 4 oz 42.6 kg/m2 118/81 mm[Hg] 10/21/2020 03:30PM NURSE LAB COLLECTION Height 63 in 09/11/2020 05:20PM ESTABLISHED [id number] Height Weight BMI Blood Pressure 63 in 238 lbs 8 oz 42.2 kg/m2 125/84 mm[Hg] 02/17/2019 Height Weight BMI Blood Pressure 62 in 235 lbs 2.08 oz 43.16 kg/m2 108/55 mm[H g] 02/08/2019 Height Weight BMI Blood Pressure 62 in 231 lbs 42.40 kg/m2 120/75 mm[Hg] 09/13/2018 Height Weight BMI Blood Pressure 62 in 235 lbs 43.14 kg/m2 130/85 mm[Hg] 07/20/2018 Height Weight BMI Blood Pressure 62 in 242 lbs 2.08 oz 44.45 kg/m2 144/67 mm[H g]
--- OUTSIDE RECORDS SUMMARY | 2021-02-03 20:38 | CCD ---
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 high normal Potassium YOHANNES ([facility]) Carbon dioxide, total [Moles/volume] in Serum or Plasma 25 mmol/L 20-32 Carbon Dioxide YOHANNES ([facility]) Chloride [Moles/volume] in Serum or Plasma 102 mmol/L 98-110 Chloride YOHANNES ([facility]) Albumin [Mass/volume] in Serum or Plasma 4.1 g/dL 3.6-5.1 Albumin [place] ([facility]) Globulin [Mass/volume] in Serum by calculation 3.1 g/dL_(calc) 1.9- 3.7 Globulin YOHANNES ([facility]) Calcium [Mass/volume] in Serum or Plasma 9.2 mg/dL 8.6-10.2 Calcium [place] ([facility]) Protein [Mass/volume] in Serum or Plasma 7.2 g/dL 6.1-8.1 [facility], [facility] Bilirubin.total [Mass/volume] in Serum or Plasma 0.3 mg/dL 0.2-1 .2 Bilirubin, Total YOHANNES ([facility]) Alkaline phosphatase [Enzymatic activity/volume] in Serum or Plasma 58 U/L 31-125 Alkaline Phosphatase [place] ([facility]) Albumin/Globulin [Mass Ratio] in Serum or Plasma 1.3 (calc) 1.0-2 .5 Albumin/globulin Ratio YOHANNES ([facility]) Aspartate aminotransferase [Enzymatic activity/volume] in Serum or Plasma 27 U/L 10-30 Ast YOHANNES ([facility]) Alanine aminotransferase [Enzymatic activity/volume] in Seru m or Plasma 25 U/L 6-29 Alt YOHANNES ([facility]) ID Date Data Source [id number] 10/21/2020 12:00:00 AM EDT YOHANNES ([facility]) Name Value Range Interpretation Code Description Data Twila rce(s) Supporting Document(s) specimen integrity compromised Speci men Integrity Compromised YOHANNES ([facility]) ID Date Data Source [id number] 10/21/2020 12:00:00 AM EDT YOHANNES ([facility]) Name Value Range Interpretation Code Description Data Twila rce(s) Supporting Document(s) Thyroxine (T4) free [Mass/volume] in Serum or Plasma 1.1 NG/dL 0 .8-1.8 T4, Free YOHANNES ([facility]) Thyrotropin [Units/volume] in Serum or Plasma 1.52 mIU/L Tsh [place] ([facility]) ID Date Data Source [id number] 10/21/2020 12:00:00 AM EDT YOHANNES ([facility]) Name Value Range Interpretation Code Description Data Twila rce(s) Supporting Document(s) Cholesterol [Mass/volume] in Serum or Plasma 196 mg/dL <200 Cholesterol, Total YOHANNES ([facility]) Triglyceride [Mass/volume] in Serum or Plasma 126 mg/dL <150 Triglycerides YOHANNES ([facility]) Cholesterol.total/Cholesterol in HDL [Mass Ratio] in Serum o r Plasma 2.8 calc <5.0 Chol/hdlc Ratio YOHANNES ([facility]) Cholesterol in HDL [Mass/volume] in Serum or Plasma 70 mg/dL > or = 50 HDL Cholesterol YOHANNES ([facility]) Cholesterol in LDL [Mass/volume] in Serum or Plasma by calculation 103 mg/dL_(calc) <100 Above high normal LDL-cholesterol YOHANNES ([facility]) Cholesterol non HDL [Mass/volume] in Serum or Plasma 126 mg/dL_(jules c) <130 Non HDL Cholesterol YOHANNES ([facility]) ID Date Data Source [id number] 07/26/2020 08:02:06 AM EDT [facility] ([facility]) Name Value Range Interpretation Code Description Data Twila rce(s) Supporting Document(s) NegativeLot: [id number]: 01/19/2022 High Sensitivity Urine Test [facility] ([facility]) Procedure Social History Code Duration Value Status Description Data Source(s ) Smoking 07/31/2020 12:00:00 AM EDT Heavy tobacco smoker comple john Heavy tobacco smoker [facility] ([facility]) 07/26/2020 12:00:00 AM EDT Occasional cigarette smoker completed Occasional cigarette smoker [facility] ([facility]) Vital Signs ID Date Data Source [id number] Name Value Range Interpretation Code Description Data Source(s) Diastolic blood pressure 81 mm[Hg] 81 mm[Hg] YOHANNES ([facility]) Body height 63 [in_i] 63 [in_i] YOHANNES ([facility]) Body mass index (BMI) [Ratio] 42.6 kg/m2 42.6 k g/m2 YOHANNES ([facility]) Systolic blood pressure 118 mm[Hg] 118 mm[Hg] A THENA ([facility]) Body weight 3844 [oz_av] 3844 [oz_av] YOHANNES ([facility]) Body height 63 [in_i] 63 [in_i] YOHANNES ([facility]) Body height 63 [in_i] 63 [in_i] YOHANNES ([facility]) Body height 63 [in_i] 63 [in_i] YOHANNES ([facility]) Body mass index (BMI) [Ratio] 42.2 kg/m2 42.2 k g/m2 YOHANNES ([facility]) Systolic blood pressure 125 mm[Hg] 125 mm[Hg] A [facility] ([facility]) Body weight 3816 [oz_av] 3816 [oz_av] YOHANNES ([facility]) Diastolic blood pressure 84 mm[Hg] 84 mm[Hg] YOHANNES ([facility]) Body height 63 [in_i] 63 [in_i] YOHANNES ([facility]) Body mass index (BMI) [Ratio] 42.2 kg/m2 42.2 k g/m2 YOHANNES ([facility]) Systolic blood pressure 125 mm[Hg] 125 mm[Hg] A [facility] ([facility]) Body weight 3816 [oz_av] 3816 [oz_av] YOHANNES ([facility]) Diastolic blood pressure 84 mm[Hg] 84 mm[Hg] YOHANNES ([facility]) Diastolic blood pressure 84 mm[Hg] 84 mm[Hg] YOHANNES ([facility]) Body height 63 [in_i] 63 [in_i] YOHANNES ([facility]) Body mass index (BMI) [Ratio] 42.2 kg/m2 42.2 k g/m2 YOHANNES ([facility]) Systolic blood pressure 125 mm[Hg] 125 mm[Hg] [facility] Body weight 3816 [oz_av] 3816 [oz_av] YOHANNES ([facility]) Body height 160.02 cm 160.02 cm [facility] ([facility]) Body weight 108.862 kg 108.862 kg [facility] ([facility]) Systolic blood pressure 133 mm[Hg] 133 mm[Hg] N [facility] ([facility]) Diastolic blood pressure 89 mm[Hg] 89 mm[Hg] [facility] ([facility]) Body mass index (BMI) [Ratio] 42.51 kg/m2 Overweight 42.51 kg/m2 [facility] ([facility]) Patient Treatment Plan of Care Planned Activity Planned Date Details Description Data Source (s) Metronidazole 500 MG Oral Tablet 07/29/2020 12:00:00 AM EDT [facility] ([facility]) Metronidazole 500 MG Oral Tablet YOHANNES ([facility]) Docusate Sodium 100 MG Oral Capsule [DOK] YOHANNES ([facility]) Metronidazole 500 MG Oral Tablet YOHANNES ([facility]) Docusate Sodium 100 MG Oral Capsule [DOK] YOHANNES ([facility]) Metronidazole 500 MG Oral Tablet YOHANNES ([facility]) Docusate Sodium 100 MG Oral Capsule [DOK] YOHANNES ([facility])
[2021-02-03 23:32] LABS: BASO % 0.7 % (0.0-1.0); EOS # 0.2 10^3/uL (0.0-0.5); EOS % 2.9 % (0.0-3.0); HEMATOCRIT 45.7 % (36.0-47.0); HEMOGLOBIN 14.4 g/dl (12.0-15.5); LYMPH # 2.4 10^3/uL (1.5-5.0); LYMPH % 40.7 % (24.0-44.0); MEAN CORPUSCULAR HGB CONC 31.5 g/dl (32.0-36.5); MEAN CORPUSCULAR VOLUME 82.5 fl (80.0-96.0); MONO # 0.6 10^3/uL (0.0-0.8); MONO % 10.5 % (2.0-8.0); NEUTROPHILS # 2.7 10^3/uL (1.5-8.5); PLATELET COUNT, AUTOMATED 347 10^3/uL (150-450); RED BLOOD COUNT 5.54 10^6/uL (4.00-5.40); WHITE BLOOD COUNT 5.9 10^3/uL (4.0-10.0)
[2021-02-03 23:59] LABS: ALBUMIN 3.4 GM/DL (3.2-5.2); ALT/SGPT 29 U/L (12-78); BILIRUBIN,DIRECT 0.1 MG/DL (0.0-0.2); BILIRUBIN,TOTAL 0.3 MG/DL (0.2-1.0); BLOOD UREA NITROGEN 10 MG/DL (7-18); CALCIUM LEVEL 9.7 MG/DL (8.5-10.1); CARBON DIOXIDE LEVEL 28 MEQ/L (21-32); CHLORIDE LEVEL 108 MEQ/L (98-107); CREATININE FOR GFR 0.64 MG/DL (0.55-1.30); GLOMERULAR FILTRATION RATE > 60.0 (>60); GLUCOSE, FASTING 91 MG/DL (70-100); LIPASE 148 U/L (73-393); SODIUM LEVEL 141 MEQ/L (136-145); TOTAL PROTEIN 7.8 GM/DL (6.4-8.2)
[2021-02-04 01:27] LABS: URINE PREG TEST NEGATIVE (NEGATIVE)
[2021-02-04 03:12] VITALS: BP 163/74
--- OUTSIDE RECORDS SUMMARY | 2021-02-04 03:22 | CCD ---
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 mm[Hg] N [facility] ([facility]) Diastolic blood pressure 89 mm[Hg] 89 mm[Hg] [facility] ([facility]) Body mass index (BMI) [Ratio] 42.51 kg/m2 Overweight 42.51 kg/m2 [facility] ([facility]) Patient Treatment Plan of Care Planned Activity Planned Date Details Description Data Source (s) Metronidazole 500 MG Oral Tablet 07/29/2020 12:00:00 AM EDT [facility] ([facility]) Metronidazole 500 MG Oral Tablet [facility] ([facility]) Docusate Sodium 100 MG Oral Capsule [DOK] [facility] ([facility]) Metronidazole 500 MG Oral Tablet [facility] ([facility]) Docusate Sodium 100 MG Oral Capsule [DOK] [facility] ([facility]) Metronidazole 500 MG Oral Tablet [facility] ([facility]) Docusate Sodium 100 MG Oral Capsule [DOK] [facility] ([facility])
== END 2021-02-04 09:13 | disposition left against medical advice (07) ==
LOC: M ED 20:34
DX: Z53.21 Procedure and treatment not carried out due to patient leaving prior to being seen by health care provider (principal)

== ENCOUNTER → 2021-10-23 | Outpatient (CLI) | payer OTHER ==
[~2021-10-23] MED LIST changes: -MONT10TA10 PO; +MONT10TA97 PO
== END ==
LOC: M WUC 11:00
PROVIDERS: ATTEND Nurse Practitioner Family
DX: M79.672 Pain in left foot (principal)

== ENCOUNTER 2022-03-22 09:55 | Emergency (ER) | payer OTHER, SELFPAY ==
[~2022-03-22] VITALS: Ht 160 cm; Wt 113.0 kg
[2022-03-22] MEDS ORDERED: ERGO500029 (10:04)
[2022-03-22] MEDS ORDERED: oxyCODONE 5MG TAB PO ONE (11:15)
[2022-03-22] MEDS ORDERED: TRAM50TA2 PO (13:04)
[2022-03-22 13:16] VITALS: BP 118/79
[2022-03-22] MEDS ORDERED: VITMTA PO (18:14)
[2022-03-22] MEDS ORDERED: IBUP-1022 PO (18:55)
== END 2022-03-22 13:48 | disposition home or self-care (01) ==
LOC: M ED 09:55
DX: S50.01XA Contusion of right elbow, initial encounter (principal); W00.9XXA Unspecified fall due to ice and snow, initial encounter; Y92.410 Unspecified street and highway as the place of occurrence of the external cause; I10 Essential (primary) hypertension; E11.9 Type 2 diabetes mellitus without complications; J45.909 Unspecified asthma, uncomplicated; F41.9 Anxiety disorder, unspecified; F32.9 Major depressive disorder, single episode, unspecified; F17.200 Nicotine dependence, unspecified, uncomplicated; Z88.0 Allergy status to penicillin; Z88.7 Allergy status to serum and vaccine; Z88.6 Allergy status to analgesic agent; Z88.8 Allergy status to other drugs, medicaments and biological substances

== ENCOUNTER 2022-03-22 16:15 | Emergency (ER) | payer OTHER, SELFPAY ==
[~2022-03-22] VITALS: Ht 160 cm; Wt 112.8 kg
[~2022-03-22 16:15] MED LIST changes: +ERGO500029; +TRAM50TA2 PO
[2022-03-22] MEDS ORDERED: NS 1,000 ML IV SCH (17:05)
[2022-03-22] MEDS ORDERED: KETAMINE HCL 200MG/20ML VIAL IV ONE (17:15)
[2022-03-22] MEDS ORDERED: fentaNYL 100 MCG/2 ML INJECTION As Ordered ONE (17:30)
[2022-03-22] MEDS ORDERED: fentaNYL 100 MCG/2 ML INJECTION IV ONE (17:30)
[2022-03-22] MEDS: propofoL 200 MG/20 ML VIAL IV.PROC PRN ×3 (17:37→17:41)
[2022-03-22] MEDS ORDERED: VITMTA PO (18:14)
[2022-03-22 18:31] VITALS: BP 152/115
[2022-03-22] MEDS ORDERED: ONDANSETRON 4MG 2ML VIAL IV ONE (18:40)
[2022-03-22] MEDS ORDERED: ONDANSETRON 4MG 2ML VIAL As Ordered ONE (18:41)
[2022-03-22] MEDS ORDERED: IBUP-1022 PO (18:55)
== END 2022-03-22 20:54 | disposition home or self-care (01) ==
LOC: M ED 16:15
DX: S53.124A Posterior dislocation of right ulnohumeral joint, initial encounter (principal); W00.0XXA Fall on same level due to ice and snow, initial encounter; Y92.89 Other specified places as the place of occurrence of the external cause; E11.9 Type 2 diabetes mellitus without complications; J45.909 Unspecified asthma, uncomplicated; F41.9 Anxiety disorder, unspecified; F32.9 Major depressive disorder, single episode, unspecified; E66.9 Obesity, unspecified; F17.200 Nicotine dependence, unspecified, uncomplicated; Z88.0 Allergy status to penicillin; Z88.7 Allergy status to serum and vaccine; Z88.6 Allergy status to analgesic agent; Z88.8 Allergy status to other drugs, medicaments and biological substances
CPT/HCPCS: 24605; 73070; 73080; 93041; 94760; 96374; 96375; 99285; J2405

== ENCOUNTER → 2022-04-17 | Outpatient (CLI) | payer OTHER ==
[~2022-04-17] MED LIST changes: +IBUP-1022 PO; +VITMTA PO
== END ==
LOC: M SOG 15:41
PROVIDERS: ATTEND Orthopaedic Surgery Hand Surgery
DX: M25.521 Pain in right elbow (principal)

== ENCOUNTER 2022-05-15 14:30 | Outpatient (RCR) | payer OTHER ==
[~2022-05-15 14:30] MED LIST changes: +MONT-5 PO; -SING10TA32 PO
== END 2022-05-19 ==
LOC: M OT 14:30
PROVIDERS: ATTEND Orthopaedic Surgery Hand Surgery
DX: S53.124A Posterior dislocation of right ulnohumeral joint, initial encounter (principal); X58.XXXA Exposure to other specified factors, initial encounter; Y93.9 Activity, unspecified; Y99.9 Unspecified external cause status; Y92.9 Unspecified place or not applicable

== ENCOUNTER 2022-05-28 10:03 | Outpatient (RCR) | payer OTHER | END 2022-06-19 | LOC: M OT 10:03 | PROVIDERS: ATTEND Orthopaedic Surgery Hand Surgery | DX: S53.124A Posterior dislocation of right ulnohumeral joint, initial encounter (principal) ==

== ENCOUNTER 2022-09-12 02:16 | Emergency (ER) | payer OTHER ==
[~2022-09-12] VITALS: Ht 160 cm; Wt 114.2 kg
[2022-09-12] MEDS ORDERED: LIDOCAINE 1% MDV 20ML VIAL SC ONE (06:15)
[2022-09-12] MEDS ORDERED: ONDANSETRON 4MG ORAL DISINTEGRATING TAB PO ONE (07:00)
[2022-09-12] MEDS ORDERED: NEOSPORIN OINT 0.9 GM PKT TOP ONE (07:15)
[2022-09-12] MEDS ORDERED: BACI500O8 TOP (07:18)
[2022-09-12 07:32] VITALS: BP 129/66; TEMP 97.2; O2SAT 98
== END 2022-09-12 07:35 | disposition home or self-care (01) ==
LOC: M ED 02:16
DX: S61.411A Laceration without foreign body of right hand, initial encounter (principal); W26.0XXA Contact with knife, initial encounter; Y92.89 Other specified places as the place of occurrence of the external cause; Y93.89 Activity, other specified; J45.909 Unspecified asthma, uncomplicated; R73.09 Other abnormal glucose; F17.200 Nicotine dependence, unspecified, uncomplicated; Z88.0 Allergy status to penicillin; Z88.7 Allergy status to serum and vaccine; Z88.6 Allergy status to analgesic agent; Z88.8 Allergy status to other drugs, medicaments and biological substances

== ENCOUNTER 2022-10-17 06:01 | Emergency (ER) | payer OTHER ==
[~2022-10-17] VITALS: Ht 160 cm; Wt 112.0 kg
[~2022-10-17 06:01] MED LIST changes: +BACI500O8 TOP
[2022-10-17 09:24] LABS: HEMATOCRIT 44.8 % (36.0-47.0); HEMOGLOBIN 14.2 g/dl (12.0-15.5); MEAN CORPUSCULAR HEMOGLOBIN 26.3 pg (27.0-33.0); MEAN CORPUSCULAR HGB CONC 31.7 g/dl (32.0-36.5); MEAN CORPUSCULAR VOLUME 83.1 fl (80.0-96.0); PLATELET COUNT, AUTOMATED 306 10^3/uL (150-450); RED BLOOD COUNT 5.39 10^6/uL (4.00-5.40); WHITE BLOOD COUNT 5.8 10^3/uL (4.0-10.0)
[2022-10-17] MEDS ORDERED: NS 1,000 ML IV ONE (09:25)
[2022-10-17 09:47] LABS: BLOOD UREA NITROGEN 7 MG/DL (9-23); CALCIUM LEVEL 8.6 MG/DL (8.5-10.1); CARBON DIOXIDE LEVEL 27 MMOL/L (20-31); CHLORIDE LEVEL 107 MMOL/L (98-107); CREATININE FOR GFR 0.55 MG/DL (0.55-1.30); GLOMERULAR FILTRATION RATE > 60.0 (>60); GLUCOSE, FASTING 80 MG/DL (60-100); SODIUM LEVEL 140 MMOL/L (136-145)
[2022-10-17 10:01] LABS: HCG, SERUM QUALITATIVE NEGATIVE (NEGATIVE)
[2022-10-17 10:46] LABS: GC DNA AMPLIFICATION NEGATIVE (NEGATIVE)
[2022-10-17] MEDS ORDERED: ISOVUE-370 76% 100ML VIAL As Ordered ONE (11:27)
[2022-10-17 11:45] VITALS: BP 160/79; TEMP 98; O2SAT 99
== END 2022-10-17 12:32 | disposition home or self-care (01) ==
LOC: M ED 06:01
DX: R10.9 Unspecified abdominal pain (principal); K57.30 Diverticulosis of large intestine without perforation or abscess without bleeding; E11.9 Type 2 diabetes mellitus without complications; I10 Essential (primary) hypertension; Z79.899 Other long term (current) drug therapy; Z88.0 Allergy status to penicillin; Z88.7 Allergy status to serum and vaccine; Z88.6 Allergy status to analgesic agent; Z88.8 Allergy status to other drugs, medicaments and biological substances
CPT/HCPCS: 74177; 76856; 80048; 81001; 84703; 85027; 87210; 87661; 87810; 87850; 96360; 96361; 99284; Q9967

== ENCOUNTER 2023-06-30 20:08 | Emergency (ER) | payer OTHER ==
[~2023-06-30] VITALS: Ht 160 cm; Wt 113.3 kg
[2023-06-30 22:17] VITALS: BP 140/82; TEMP 98.7; O2SAT 98
== END 2023-06-30 22:18 | disposition home or self-care (01) ==
LOC: EDBD 20:08 → M ED 20:08
DX: S23.41XA Sprain of ribs, initial encounter (principal); S80.02XA Contusion of left knee, initial encounter; W01.0XXA Fall on same level from slipping, tripping and stumbling without subsequent striking against object, initial encounter; Z79.2 Long term (current) use of antibiotics; Z79.891 Long term (current) use of opiate analgesic; Z79.899 Other long term (current) drug therapy; Y92.9 Unspecified place or not applicable; Y93.89 Activity, other specified; Y99.0 Civilian activity done for income or pay

== ENCOUNTER → 2024-03-28 | Outpatient (CLI) | payer OTHER ==
[2024-03-28 13:11] LABS: ALBUMIN 3.2 G/DL (3.2-5.2); ALKALINE PHOSPHATASE 62 U/L (35-104); ALT/SGPT 24 U/L (7.0-40); AST/SGOT 25 U/L (<34); BILIRUBIN,TOTAL 0.3 MG/DL (0.3-1.2); BLOOD UREA NITROGEN 10 MG/DL (9-23); CALCIUM LEVEL 9.4 MG/DL (8.5-10.1); CARBON DIOXIDE LEVEL 29 MMOL/L (20-31); CHLORIDE LEVEL 109 MMOL/L (98-107); CHOLESTEROL LEVEL 182 MG/DL (<200); CHOLESTEROL RISK RATIO 3.41 (<5); CREATININE FOR GFR 0.59 MG/DL (0.55-1.30); GLOMERULAR FILTRATION RATE > 60.0 (>60); GLUCOSE, FASTING 81 MG/DL (60-100); HDL CHOLESTEROL 53.3 MG/DL (>40); LDL CHOLESTEROL 110.9 MG/DL (<100); NON-HDL-C 128.7 MG/DL; POTASSIUM SERUM 4.5 MMOL/L (3.5-5.1); SODIUM LEVEL 142 MMOL/L (136-145); TOTAL PROTEIN 7.1 G/DL (5.7-8.2); TRIGLYCERIDES LEVEL 89 MG/DL (<150)
== END ==
LOC: M LAB 11:45
PROVIDERS: ATTEND Family Medicine Addiction Medicine
DX: E78.5 Hyperlipidemia, unspecified (principal)